=== PATIENT | male | born 1980 | race Two or more races ===

== ENCOUNTER 2023-03-01 14:58 | Inpatient (IN) | payer OTHER ==
[~2023-03-01] VITALS: Ht 172.7 cm; Wt 0.5 kg
[2023-03-14] MEDS ORDERED: INTEGRA CAPSUL1 EACH PO (12:51)
[2023-03-14] MEDS ORDERED: NEURONTIN300 MG PO (12:52)
[2023-03-14] MEDS ORDERED: TYLENOL325 MG PO (12:52)
== END 2023-03-14 13:12 | disposition home or self-care (01) | DRG 330 ==
LOC: ADM 03-02 08:15 → EDSTATUS 03-02 08:15 → O/R 03-07 07:07 → SURG 03-07 07:07 → SURH 03-09 15:20
PROVIDERS: ADMIT Surgery; ATTEND Surgery
PROC: 0DBP0ZZ Excision of Rectum, Open Approach (ICD-10-PCS; 2023-03-07)
PROC: 0DQ80ZZ Repair Small Intestine, Open Approach (ICD-10-PCS; 2023-03-07)
PROC: 0DBE0ZZ Excision of Large Intestine, Open Approach (ICD-10-PCS; 2023-03-07)
PROC: 0DJD8ZZ Inspection of Lower Intestinal Tract, Via Natural or Artificial Opening Endoscopic (ICD-10-PCS; 2023-03-07)
PROC: 0T7D8DZ Dilation of Urethra with Intraluminal Device, Via Natural or Artificial Opening Endoscopic (ICD-10-PCS; 2023-03-07)
PROC: 0DTN0ZZ Resection of Sigmoid Colon, Open Approach (ICD-10-PCS; principal; 2023-03-07 14:30)
PROC: 30233N1 Transfusion of Nonautologous Red Blood Cells into Peripheral Vein, Percutaneous Approach (ICD-10-PCS; 2023-03-10)
DX: K57.20 Diverticulitis of large intestine with perforation and abscess without bleeding (principal); K63.2 Fistula of intestine; D64.9 Anemia, unspecified; K66.0 Peritoneal adhesions (postprocedural) (postinfection); Z20.822 Contact with and (suspected) exposure to COVID-19; Z53.31 Laparoscopic surgical procedure converted to open procedure; Z43.3 Encounter for attention to colostomy